=== PATIENT | female | born 1955 | race African-American/Black ===

== ENCOUNTER 2018-02-16 07:00 | Day surgery (SDC) | payer OTHER ==
[2018-02-16] MEDS ORDERED: DIPHENHYDRAMINE 50 MG INJ (08:52)
[2018-02-16] MEDS ORDERED: FENTAnyl 50 MCG/ML VIAL (09:46)
[2018-02-16] MEDS ORDERED: MIDAZOLAM 1 MG/ML 2 ML INJ ×3 (09:46)
== END 2018-02-16 11:30 | disposition home or self-care (01) ==
LOC: GIL 07:00
DX: Z12.11 Encounter for screening for malignant neoplasm of colon (principal); K57.30 Diverticulosis of large intestine without perforation or abscess without bleeding
CPT/HCPCS: 45378